=== PATIENT | female | born 1965 | race Caucasian/White ===

== ENCOUNTER 2019-05-08 00:22 | Day surgery (SDC) | payer OTHER, SELFPAY ==
[2019-05-02 13:21] VITALS: BMI 33.2
[2019-05-08 07:11] VITALS: BP 134/78; PULSE 81; RESP 16; TEMP 36.2; O2SAT 100
[2019-05-08] MEDS: LACTATED RINGERS 1,000 ML 150 ML IV CONT (07:15)
--- NOTE | 2019-05-08 07:33 | WPDANESEPPF ---
Anes - Initial Pre Proc Eval Procedure: Operation Date: 05/08/19 08:00 Proposed Procedures p Esophagogastroduodenoscopy - Pedrito James DO Date/Time: 05/08/19 07:33 Surgeon: Pedrito James DO Pre Op Diagnosis: Iron Deficiency Anemia/ Gerd Patient Data Age: 53 Gender: F Height: 1.6 m Weight: 88.2 kg Last Vital Signs Temp 36.2 C L 05/08/19 07:11 Pulse 81 05/08/19 07:11 Resp 16 05/08/19 07:11 BP 134/78 05/08/19 07:11 Pulse Ox 100 05/08/19 07:11 Allergies Allergy/AdvReac Type Severity Reaction Status Date / Time No Known Allergies Allergy NONE Verified 05/08/19 07:10 Home Medications Medication Instructions Recorded Confirmed Type estradiol 0.5 mg PO DAILY 05/02/19 05/02/19 History omeprazole 40 mg PO DAILY 05/02/19 05/08/19 History Patient hx anesthesia problems: none Family hx anesthesia problems: none PMFSH Past Medical History Medical History (Updated 05/07/19 @ 14:18 by Mookie Castellanos DO) GERD (gastroesophageal reflux disease) NEERAJ (obstructive sleep apnea) mouth piece Surgical History Surgical History (Updated 05/07/19 @ 14:18 by Mookie Castellanos DO) History of appendectomy History of cholecystectomy History of hysterectomy Family History Family History (Updated 06/15/16 @ 10:00 by DOCTOR UNKNOWN) Mother Patient's mother is in good health Father Patient's father is in good health Hypertension Family history of elevated blood lipids Family history of type 2 diabetes mellitus Sibling Patient's brother is in good health Other Carcinoma of colon Diabetes mellitus Family history of liver disease Social History Social History Smoking status: Never smoker Alcohol intake: current Anes - Eval Final PreProcedure Day of Procedure 05/08/19 07:33 Patient weight: obese Heart: regular rate and rhythm Lungs: clear to auscultation and normal air movement Airway: Mallampati scale class II Neurological: alert and oriented Last oral intake: >/= 8 hours ASA classification: III Emergent: no Anesthetic plan: proceed Anesthesia type and monitoring: general GIVS and standard monitoring Informed Consent: The patient's anesthetic plan and its attendant risks and benefits were discussed with the patient/family/POA. Questions were solicited and answers provided to the satisfaction of the patient/family/POA.
--- NOTE | 2019-05-08 08:03 | PM.IMHP ---
H&P: HPI History of Present Illness Chief complaint: Iron Deficiency Anemia/ Gerd Narrative: Reason for visit EGD. Very pleasant lady's seen at the request of the primary physician and with the patient's permission. Impression: He recovered very pleasant lady with underlying reflux symptoms. It is well controlled on omeprazole. She does take NSAIDs been having abdominal pain. Underlying peptic ulcer disease should be excluded. Anemia not characterize. Diverticulosis coli. Family history of colon cancer. Fibromyalgia. Recommendation: Will proceed with EGD. History: This very pleasant lady has a long-term history of reflux disease. She would have daily reflux she was not taking omeprazole 40 mg q.a.m.. she does admit to taking NSAIDs daily. Nausea, vomiting hematemesis or tonight. She denies any hematochezia, melena or acholic stools. Constipation and diarrhea tonight. She had a colonoscopy previously which revealed evidence of diverticulosis coli. She is here for EGD. Review of Systems Review of Systems: All systems reviewed & are unremarkable except as noted in HPI and below PMFSH Past Medical History Medical History (Updated 05/07/19 @ 14:18 by Mookie Castellanos DO) GERD (gastroesophageal reflux disease) NEERAJ (obstructive sleep apnea) mouth piece Surgical History Surgical History (Updated 05/08/19 @ 08:05 by Pedrito James DO) H/O colonoscopy History of appendectomy History of cholecystectomy History of esophagogastroduodenoscopy (EGD) History of hysterectomy Family History Family History (Updated 06/15/16 @ 10:00 by DOCTOR UNKNOWN) Mother Patient's mother is in good health Father Patient's father is in good health Hypertension Family history of elevated blood lipids Family history of type 2 diabetes mellitus Sibling Patient's brother is in good health Other Carcinoma of colon Diabetes mellitus Family history of liver disease Social History Social History Smoking status: Never smoker Alcohol intake: current Meds Home Medications and Allergies Home Medications Medication Instructions Recorded Confirmed Type estradiol 0.5 mg PO DAILY 05/02/19 05/02/19 History omeprazole 40 mg PO DAILY 05/02/19 05/08/19 History Allergies Allergy/AdvReac Type Severity Reaction Status Date / Time No Known Allergies Allergy NONE Verified 05/08/19 07:10 Vital Signs Vital Signs - 24 hr 05/08/19 07:11 Temperature 36.2 C L Pulse Rate 81 Respiratory Rate 16 Blood Pressure 134/78 Pulse Oximetry 100 Exam Narrative: Exam Narrative: General: very pleasant patient in no acute distress. HEENT: Head was normocephalic sclerae is clear mouth without masses neck was supple. Heart: Rate rhythm regular without S3 or S4. Lungs: CTA. Abdomen: Soft with no guarding or rigidity. Bowel sounds were active. Neurologic: Cranial nerves 2 through 12 intact. No focal defects. No clonus. Musculoskeletal system: Revealed no joint tenderness or swelling no muscle atrophy. Extremities: Reveal no significant edema. Skin: Warm and dry with normal turgor. Mental status: intact. Patient is alert and oriented. Thank you for allowing me to participate in the care of this most and patient.
[2019-05-08 08:18] VITALS: BP 117/75; PULSE 77; RESP 16; O2SAT 99
[2019-05-08 08:28] VITALS: BP 116/82; PULSE 73; RESP 20; O2SAT 100
[2019-05-08 08:38] VITALS: BP 126/84; PULSE 69; RESP 19; O2SAT 98
== END 2019-05-08 08:52 | disposition home or self-care (01) ==
PROVIDERS: PCP Family Medicine; Visit Provider Internal Medicine Gastroenterology
PROC: 0DJ08ZZ Inspection of Upper Intestinal Tract, Via Natural or Artificial Opening Endoscopic (ICD-10-PCS; CPT 43235; principal; 2019-05-08 08:00)
DX: D50.9 Iron deficiency anemia, unspecified (principal); K21.9 Gastro-esophageal reflux disease without esophagitis; K44.9 Diaphragmatic hernia without obstruction or gangrene; G47.33 Obstructive sleep apnea (adult) (pediatric); E66.9 Obesity, unspecified; Z68.34 Body mass index [BMI] 34.0-34.9, adult; M79.7 Fibromyalgia; Z79.1 Long term (current) use of non-steroidal anti-inflammatories (NSAID)
CPT/HCPCS: 43239; 87081; J2704; J7120

== ENCOUNTER → 2019-05-23 12:18 | Outpatient (CLI) | payer OTHER, SELFPAY ==
--- NOTE | ~2019-05-23 | CT_ITS ---
EXAMINATION: CT abdomen pelvis w con INDICATION: Upper abdominal and right lower quadrant pain TECHNIQUE: Computed tomographic images of the abdomen and pelvis were obtained after the administrati on of 100 cc of Omnipaque 350 intravenous contrast. The dose-length product (DLP) was 1004.09 mGy-cm. Automated exposure control and iterative reconstruction technique were employed. COMPARISON: 11/01/2012 FINDINGS: Minimal dependent atelectasis is present in the lung bases. The heart size is normal. A 5 m m nodule of the right middle lobe previously measured 3 mm but likely reflects old granulomatous dise ase given the interval between examinations. There is a small sliding hiatal hernia. The liver, splee n, pancreas, gallbladder, and left adrenal gland are normal. A 6 mm lesion in the right adrenal gland measuring fat attenuation is consistent with a myelolipoma. The kidneys are unremarkable. No patholo gically enlarged abdominal or pelvic lymph nodes are identified. There is no free intraperitoneal gas or evidence of bowel obstruction. The appendix is normal. There is mild lumbar spondylosis. There is a fat-containing umbilical hernia. IMPRESSION: 1. Small sliding hiatal hernia. Reviewed, dictated and finalized at location B.
== END ==
PROVIDERS: PCP Family Medicine
DX: R10.9 Unspecified abdominal pain (principal); D64.9 Anemia, unspecified; K44.9 Diaphragmatic hernia without obstruction or gangrene
CPT/HCPCS: 74177; Q9967

== ENCOUNTER → 2020-04-06 03:34 | Outpatient (CLI) | payer OTHER, SELFPAY ==
[2020-04-07 18:18] LABS: SARS-CoV-2 RNA PCR Negative
== END ==
PROVIDERS: PCP Family Medicine; Visit Provider Urology
DX: Z01.812 Encounter for preprocedural laboratory examination (principal); Z20.822 Contact with and (suspected) exposure to COVID-19
CPT/HCPCS: C9803; U0003; U0005

== ENCOUNTER 2020-04-09 00:54 | Day surgery (SDC) | payer OTHER, SELFPAY ==
--- NOTE | 2020-04-04 10:05 | P.HP_ITS ---
H&P: HPI History of Present Illness Date/Time: 04/04/20 10:05 Chief Complaint: OAB Narrative: Miriam Romo is a 54 year old female with OAB and a successful InterStim trial Review of Systems Review of Systems: All systems reviewed & are unremarkable except as noted in HPI and below PMFSH Past Medical History Medical History (Updated 04/04/20 @ 10:06 by Jose Hilario MD) GERD (gastroesophageal reflux disease) NAFLD (nonalcoholic fatty liver disease) NEERAJ (obstructive sleep apnea) mouth piece Surgical History Surgical History (Updated 05/08/19 @ 08:05 by Pedrito James DO) H/O colonoscopy History of appendectomy History of cholecystectomy History of esophagogastroduodenoscopy (EGD) History of hysterectomy Family History Family History (Updated 06/15/16 @ 10:00 by DOCTOR UNKNOWN) Mother Patient's mother is in good health Father Patient's father is in good health Hypertension Family history of elevated blood lipids Family history of type 2 diabetes mellitus Sibling Patient's brother is in good health Other Carcinoma of colon Diabetes mellitus Family history of liver disease Social History Social History Smoking status: Never smoker Alcohol intake: current Meds Home Medications and Allergies Home Medications Medication Instructions Recorded Confirmed Type estradiol 0.5 mg PO DAILY 05/02/19 05/02/19 History omeprazole 40 mg PO DAILY 05/02/19 05/08/19 History Allergies Allergy/AdvReac Type Severity Reaction Status Date / Time No Known Allergies Allergy NONE Verified 05/08/19 07:10 Exam 2 Const: General: cooperative HENMT: Head: normal to inspection Eyes: General: appearance normal, both eyes and all related structures Chest: Chest palpation & inspection: normal inspection of the chest Resp: Effort & Inspection: normal respiratory effort and able to speak in complete sentences Skin: General skin exam: normal color Assessment and Plan Assessment and plan (1) Overactive bladder: Code(s): N32.81 - Overactive bladder Status: Acute Assessment and Plan: InterStim implant
[2020-04-05 14:14] VITALS: BMI 32.0
--- NOTE | ~2020-04-09 | XR_ITS ---
EXAMINATION: FLUORO NEUROSTIM INSERT < 1HR DATE: 04/09/2020 09:21 INDICATION: Interstim phase I and 2 TECHNIQUE: Frontal and lateral fluoroscopic images of the sacrum were obtained. The amount of fluoros copy time used during this procedure was 0.8 minutes. COMPARISON: None. FINDINGS: Distal tip of an Interstim lead extends from posterior to anterior through the right S3 ne ural foramen. IMPRESSION: 1. Interstim lead extends through the right S3 neural foramen. See procedure note for further detail . Reviewed, dictated and finalized at location A. ER MINER IMPRESSION: 1. Interstim lead extends through the right S3 neural foramen. See procedure n ote for further detail.
[2020-04-09 06:23] VITALS: BP 140/80; PULSE 78; RESP 16; TEMP 36.1; O2SAT 98
--- NOTE | 2020-04-09 07:08 | WPDANESEPPF ---
Anes - Initial Pre Proc Eval Procedure: Operation Date: 04/09/20 08:30 Proposed Procedures p Insertion Interstim Phase Two - Jose Hilario MD Date/Time: 04/09/20 07:08 Surgeon: Jose Hilario MD Pre Op Diagnosis: Over Active Bladder Patient Data Age: 54 Gender: F Height: 1.6 m Weight: 82 kg Allergies Allergy/AdvReac Type Severity Reaction Status Date / Time No Known Allergies Allergy NONE Verified 04/09/20 07:14 Home Medications Medication Instructions Recorded Confirmed Type estradiol 0.5 mg PO DAILY 05/02/19 04/09/20 History omeprazole 40 mg PO DAILY 05/02/19 04/09/20 History Patient hx anesthesia problems: none Family hx anesthesia problems: none PMFSH Past Medical History Medical History (Updated 04/04/20 @ 10:06 by Jose Hilario MD) GERD (gastroesophageal reflux disease) NAFLD (nonalcoholic fatty liver disease) NEERAJ (obstructive sleep apnea) mouth piece Surgical History Surgical History (Updated 05/08/19 @ 08:05 by Pedrito James DO) H/O colonoscopy History of appendectomy History of cholecystectomy History of esophagogastroduodenoscopy (EGD) History of hysterectomy Family History Family History (Updated 06/15/16 @ 10:00 by DOCTOR UNKNOWN) Mother Patient's mother is in good health Father Patient's father is in good health Hypertension Family history of elevated blood lipids Family history of type 2 diabetes mellitus Sibling Patient's brother is in good health Other Carcinoma of colon Diabetes mellitus Family history of liver disease Social History Social History Smoking status: Never smoker Alcohol intake: current Substance use: never Living arrangements: with family Spiritual care concerns: No Anes - Eval Final PreProcedure Day of Procedure 04/09/20 07:08 Patient weight: obese Heart: regular rate and rhythm Lungs: clear to auscultation and normal air movement Airway: Mallampati scale class III Neurological: alert and oriented Last oral intake: >/= 8 hours ASA classification: III Emergent: no Anesthetic plan: proceed Anesthesia type and monitoring: general GIVS and standard monitoring Informed Consent: The patient's anesthetic plan and its attendant risks and benefits were discussed with the patient/family/POA. Questions were solicited and answers provided to the satisfaction of the patient/family/POA.
--- NOTE | 2020-04-09 07:18 | WPDHPUPDATE1 ---
History and Physical Update Update Date/Time: 04/09/20 07:18 History and Physical has been reviewed, including an updated exam of the patient. There are NO changes in the patient's condition. Risks, benefits, and alternatives have been discussed and questions answered. Patient agrees to proceed with procedure.
[2020-04-09] MEDS: LACTATED RINGERS 1,000 ML 30 ML IV CONT (07:48)
[2020-04-09] MEDS: ceFAZolin 2 GM/D5W 50 ML 2 GM/50 ML BAG IVPB (09:05)
[2020-04-09] MEDS: BUPIVACAINE/EPINEPHRINE 0.25% 50 ML VIAL INFILTRATE (09:06)
[2020-04-09] MEDS: KETOROLAC 30 MG/ML VIAL (*BKC) IV PUSH (09:13)
[2020-04-09 09:28] VITALS: BP 91/52; PULSE 91; RESP 12; O2SAT 98
--- NOTE | 2020-04-09 09:36 | P.OP_ITS ---
Procedure Note - Detailed Date of procedure: 04/09/20 Pre-op diagnosis: Over Active Bladder Procedure performed: Placement of sacral Fluoroscopic guidance for needle placement Placement of implantable pulse generator Complex neurostimulator programming and impedance check Description of procedure: This patient has undergone a successful InterStim trial. He presents today for placement of a permanent device. Understanding the risks of bleeding, infection, lack of efficacy, need for repeat procedures, need for revision. They agree to proceed Dear correctly identified and informed consent was obtained. There brought to the operating room. Placed in the prone position. There given appropriate anesthesia. There prepped and draped in a sterile fashion. A time-out performed. I used fluoroscopy to identify my sacral landmarks in the AP and lateral orientation. I anesthetized the skin. I into the sacral foramen on the left and the right. I monitored the needle fluoroscopy. I entered right and left S3 foramen. I stimulated the needle and got appropriate response at low thresholds. I made a skin viki. I placed a stylet and the lead introducer sheath. I then placed and deployed by lead again under fluoroscopy. The lead was ultimately placed on the right. I marked out the site of the future pulse generator. I anesthetized the skin. I made an incision. I created a subcutaneous pocket. I obtained hemostasis. I irrigated out the wound. I then tunneled the lead towards this pocket. Appropriate connections were made between the lead and battery. The battery was programmed. It was placed in the pocket. Impedances were checked and found to be normal. I once again assured hemostasis. I irrigated out all wounds. I closed the subcu with 2 0 Vicryl. Skin with 4 0 Vicryl. Glue was applied. They were then awakened and transfer red to the PACU in stable condition. Implants: Neuromodulation device Anesthesia: MAC and local Surgeon: Jose Hilario MD Drains: No Packing: No Pathology: none sent Complications: No immediate complications Condition: stable Disposition: PACU
[2020-04-09] MEDS: fentaNYL CITRATE INJ (*CRX) 100 MCG/2 ML VIAL 25 MCG IV PUSH (09:51)
--- NOTE | 2020-04-09 09:53 | SUR.PHASEII ---
JUDE PATIENT INSURANCE CLERK HERE TO INSTRUCT PT.
[2020-04-09 09:55] VITALS: BP 98/68; PULSE 80; RESP 12
[2020-04-09 10:15] VITALS: BP 110/52; PULSE 79; RESP 16
== END 2020-04-09 10:40 | disposition home or self-care (01) ==
PROVIDERS: PCP Family Medicine; Visit Provider Urology
PROC: (CPT 64581; principal; 2020-04-09 08:30)
DX: N32.81 Overactive bladder (principal); K76.0 Fatty (change of) liver, not elsewhere classified; K21.9 Gastro-esophageal reflux disease without esophagitis; G47.33 Obstructive sleep apnea (adult) (pediatric); E66.9 Obesity, unspecified; Z68.35 Body mass index [BMI] 35.0-35.9, adult
CPT/HCPCS: 64581; 64590; C1767; C1778; C1787; C9803; J0690; J1885; J2250; J2704; J3010; J7120; U0003; U0005

== ENCOUNTER → 2021-02-28 10:04 | Outpatient (CLI) | payer OTHER, SELFPAY ==
--- NOTE | ~2021-02-28 | US_ITS ---
US right upper quadrant DATE: 02/28/2021 10:34 INDICATION: Hepatic steatosis. Elevated liver enzymes. TECHNIQUE: Real-time imaging and Doppler analysis COMPARISON: 05/23/2019, 11/01/2012 CT abdomen pelvis examinations FINDINGS: History of cholecystectomy. There is hepatic steatosis. No suspicious hepatic space-occupyi ng mass lesion is evident. Normal hepatopedal portal venous flow direction. The common bile duct measures 5 mm, within normal limits. No pancreatic mass lesion is evident. IMPRESSION: History of cholecystectomy Hepatic steatosis Reviewed, dictated and finalized at Location A. Reviewed, dictated and finalized at location A. ICE STATION OPERATOR
== END ==
DX: K76.0 Fatty (change of) liver, not elsewhere classified (principal)
CPT/HCPCS: 76705

== ENCOUNTER 2021-06-10 08:11 | Outpatient (CLI) | payer OTHER, SELFPAY ==
--- NOTE | ~2021-06-10 | XR_ITS ---
EXAMINATION: XR UGI w small bowel DATE: 06/10/2021 11:10 INDICATION: Iron deficiency anemia, constipation/diarrhea TECHNIQUE: The patient drank thick barium, gas-producing crystals, and thin barium. Conventional supi ne abdomen radiographs and fluoroscopy of the esophagus, stomach, and small bowel were performed. Flu oroscopy exposure time was 4.9 minutes. The DAP for this procedure was 97.36 Gycm2. COMPARISON: None FINDINGS: UPPER GASTROINTESTINAL SERIES: There is no mass or stricture of the esophagus. Esophageal motility is normal. There is a small hiata l hernia. There was a moderate amount of spontaneous gastroesophageal reflux. The stomach shows a nor mal folding pattern.] SMALL BOWEL SERIES: Web Applications Developer radiograph is unremarkable. There are no dilated loops of bowel. A neurostimulator device is im planted on the right side with its lead entering the right pelvis. Transit time from the stomach to p roximal colon was approximately 90 minutes. There is normal caliber and mucosal fold pattern througho ut the small bowel. Terminal ileum is normal. No tethering or abnormal mass effect observed upon th e small bowel with real-time fluoroscopy. IMPRESSION: 1. Small sliding hiatal hernia with a moderate amount of spontaneous gastroesophageal reflux. 2. No radiographic correlate for the patient's symptoms. Reviewed, dictated and finalized at location A. IMPRESSION: 1. Small sliding hiatal hernia with a moderate amount of spontaneous gastroesop hageal reflux. 2. No radiographic correlate for the patient's symptoms.
== END 2021-06-10 08:12 | disposition home or self-care (01) ==
DX: D50.9 Iron deficiency anemia, unspecified (principal); K44.9 Diaphragmatic hernia without obstruction or gangrene; K21.9 Gastro-esophageal reflux disease without esophagitis
CPT/HCPCS: 74240; 74248